=== PATIENT | female | born 1970 | race Caucasian/White ===

== ENCOUNTER 2024-10-15 21:23 | Emergency (ER) | payer OTHER, SELFPAY ==
[2024-10-15] VITALS (13 sets, daily range): BP systolic 122–164; BP diastolic 77–113; BMI 32.4
[2024-10-15] MEDS: ZOFRAN 4 MG IV (21:29)
[2024-10-15] MEDS: DILAUDID 1 MG IV (21:30)
--- NOTE | 2024-10-15 21:34 | ED.GENMED ---
History of Present Illness
General
Chief Complaint: Musculo-Skeletal Complaint
Source: patient
Exam Limitations: none
Time Seen by Provider: 10/15/24 21:28
History of Present Illness
History of Present Illness:
See MDM
Past History
Past History
ED Past Medical History: None
ED Past Surgical History: None
Social History
Tobacco: Non-smoker
Alcohol: None
Phy Exam
Physical Exam
Physical Exam:
See MDM
Course
Orders/Labs/Results
Orders:
Orders
10/15/24 21:28
HYDROmorphone [Dilaudid] 1 mg .ROUTE .STK-MED ONE
HYDROmorphone [Dilaudid] 1 mg IV NOW STA
Ondansetron Injectable [Zofran] 4 mg .ROUTE .STK-MED ONE
Ondansetron Injectable [Zofran] 4 mg IV NOW STA
Ankle, Right 3 view CR [CR Ankle - Right Min 3 Views *] Urgent
Comment:
Reason For Exam: fall, ankle pain
10/15/24 21:57
Propofol [Diprivan] 20 ml .ROUTE .STK-MED
10/15/24 22:17
Ankle, Right 2 view CR [CR Ankle - Right 2 Views] Urgent
Comment:
Reason For Exam: post reduction
10/15/24 22:30
Crutches-Treatment ONCE
10/15/24 22:54
Oxycodone/Acetaminophen [Percocet 5/325] 1 tablet PO NOW STA
Vital Signs
Initial and Last Documented VS:
Initial Vital Signs
BP
127/113
10/15/24 21:28
Last Documented Vital Signs
Temp Pulse Resp BP Pulse Ox
98.6 F 76 15 147/87 98
10/15/24 22:25 10/15/24 22:45 10/15/24 22:45 10/15/24 22:40 10/15/24 22:45
Procedures
Moderate Sedation
ASA Risk Score: Class I
Chart and allergies reviewed: Yes
Consent for anesthesia obtained: Yes
Time out completed (validating right patient & procedure): Yes
Moderate Sedation Start Time(when first medication is given): 22:09
History of difficult intubation: No
Airway free of obstruction: Yes
Patient has a gag reflex: Yes
Patient is able to open mouth: Yes
Patient has no dentures: Yes
Patient has no loose teeth: Yes
Medication administered by Provider during Moderate Sedation: IV Propofol (mg)
Total dose administered: 125
Time drug administered: 22:10
Moderate Sedation Procedure End Time: :25
Comment: Time out 2208
Joint/Fracture Reduction
Right Anterior Distal Ankle:
Indication for procedure:: Fracture and dislocation of Right ankle
Procedure completed by: Francisco Appiah DO
Consent form signed: Yes
Joint reduced: with anesthesia sedation
Injury was: closed
Further treatement: needs further treatment
Post reduction exam: stable
Capillary Refill: normal
Peripheral Pulses: dorsalis pedis (right): 2+
MDM/Problems Addressed
Differential Diagnosis Includes:
HPI and MDM Narrative:
53-year-old female presenting with right ankle injury. Patient slipped off the curb and twisted her ankle. Patient has an obvious deformity of the right ankle. On arrival, patient given Dilaudid and Zofran immediately. The distal extremity is
neurovascularly intact but will obtain immediate x-ray with concern for Tri mal versus Bi mal fracture
Physical exam
General: Mildly on-call
HEENT: protecting airway
Neck: appears supple
CV: No evidence of cyanosis
Resp: No accessory muscle use
Abd: Non-distended
Extremities: Deformity to distal right ankle. Distal extremity otherwise neurovascularly
Neuro: alert
Psych: Normal affect
Skin: Intact
Problems Addressed including Acute and Chronic Conditions affecting care:
1. Ankle fracture
Acuity: acute
Prognosis: unstable
Details: Given the fracture, patient will require sedation for reduction
Updates
X-ray consistent with fracture dislocation. Patient tolerated moderate sedation and reduction well
Differential Diagnosis (but not limited to): Trimalleolar fracture, bimalleolar fracture
Testing considered: Tib-fib x-ray
Drug therapy (if applicable): OTC meds, please see d/c instruction regarding Rx drugs
Amount and/or Complexity of Data Reviewed
Clinical info obtained from: Patient
External data reviewed: N/A
Labs I independently reviewed (but not limited to): N/A
Radiology: X-ray independently reviewed: Ankle fracture and dislocation noted
Pulse Ox: not hypoxic
EKG independently reviewed: N/A
Mesh Man: N/A
Critical Care: N/A
Risk of Complication:
Social Determinants of health: Good social support
Discussed with other providers: N/A
Escalation of Care includes Admit/Obs: After being observed in the Emergency Department, pt stable for discharge.
Occasional wrong word or 'sound a like' substitutions may have occurred due to the inherent limitations of voice recognition software. Read the chart carefully and recognize, using context, where substitutions have occurred.
*Critical Care Note
Total Time (30-74mins, 75-104mins- exclusive of procedures): Not Applicable
ED Attending Note
-
Portions of this chart may have been created with voice recognition software.� Occasional wrong word or��sound alike� substitutions may have occurred due to the inherent limitations of voice recognition software.
Discharge Plan
Departure
Patient Disposition: Home (Routine Discharge)
Date of Disposition: 10/15/24
Time of Disposition: 23:03
Patient with high blood pressure during this ER visit?: No
Discharge Problem:
Ankle fracture, right
Instructions: Ankle Fracture (DC), MODERATE SEDATION ADULT
Prescriptions:
New
oxycodone 5 mg tablet
5 mg PO Q8H PRN (Reason: Pain) Qty: 14 0RF
Referrals:
Roverto Angeles PA-C [Family Provider] -
Roverto Landrum MD [Active] -
Activity Restrictions/Additional Instructions:
Please return for any worsening symptoms.
You may return at any time if you have further concerns.
Please follow up with the orthopedist at the first available appointment, preferably this week.
You were given a prescription for narcotics. If you require this pain medicine, please take a daily [id number] stool softener to avoid constipation.
Thank you for choosing [facility].
Interventions
Interventions:
*Risk Screen - Suicide Last Done: 10/15/24 21:36
*General Assessment Last Done: 10/15/24 21:36
*Neglect/Abuse Screening Last Done: 10/15/24 21:36
ED- Fall Risk Assessment Last Done: 10/15/24 21:36
*ED COVID-19 Vaccine History Last Done: 10/15/24 21:36
ED-Musculoskeletal Assessment Last Done: 10/15/24 21:36
Discharge Date and Time
Print Language: AMERICAN
[2024-10-15] MEDS: PERCOCET 5/325 1 TABLET PO (23:20)
== END 2024-10-15 23:00 | disposition home or self-care (01) ==
LOC: EMR 21:23
PROVIDERS: EMERGENCY PHYSICIAN Student in an Organized Health Care Education/Training Program; FAMILY PHYSICIAN Physician Assistant Medical
DX: S82.831A Other fracture of upper and lower end of right fibula, initial encounter for closed fracture (principal); W19.XXXA Unspecified fall, initial encounter
CPT/HCPCS: 99283; 27788; 99152; 96374; 96375; 73600; 73610